=== PATIENT | female | born 1965 | race Caucasian/White ===

== ENCOUNTER 2017-08-15 16:14 | Observation (INO) | payer SELFPAY ==
[~2017-08-15] VITALS: Ht 170.2 cm; Wt 43.6 kg
[2017-08-15] VITALS (7 sets, daily range): BP systolic 145–166; BP diastolic 71–108; PULSE 88–102; RESP 12–18; TEMP 99.1; O2SAT 94–98
[~2017-08-15 16:14] MED LIST: ALBUAER3 INH; PRED5PAK PO; SYMB160A INH; VENTAER INH; ZITH250T PO
[2017-08-15] MEDS ORDERED: SODIUM CHLOR 0.9% 1000 ML INJ 1,000 ML IV SCH (16:41)
[2017-08-15] MEDS ORDERED: KETOROLAC TROMETHAMINE 30 MG/ML (IVP) VIAL IVP ONE (16:45)
[2017-08-15] MEDS ORDERED: SODIUM CHLORIDE 0.9% FLUSH 10 ML FLUSH IV FLUSH PRN ×2 (16:45→22:00)
[2017-08-15] MEDS ORDERED: METOCLOPRAMIDE HCL 10 MG/2 ML VIAL IV PUSH ONE ×2 (16:45→20:30)
--- NOTE | 2017-08-15 16:50 | PD ---
HPI Chief Complaint: Abdominal Pain Time Seen by Provider: 16:37 Travel History International Travel<30 days: No Contact w/Intl Traveler<30days: No Traveled to known affect area: No History of Present Illness HPI Patient is a 52-year-old female with history of diverticulitis and Crohn's disease, who comes in complaining of abdominal pain with nausea and vomiting. She says this all started at 6 AM this morning. She says her last bowel movement was yesterday and was normal. She has not taken anything for her symptoms. She says the last time she had a diverticulitis issue was 10 years ago. She is not currently on anything for Crohn's due to insurance issues. She denies fever chills. She says the pain is all over her abdomen, but more severe in her left side. Severity is moderate. 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) Diabetes: No Diminished Hearing: No Diverticulitis: Yes ([place]) Endocrine: No Gastrointestinal Disorders: Yes (Crohns/gastroparesis) Genitourinary: No Hypertension: Yes Immune Disorder: No Implanted Vascular Access Dvce: Yes Musculoskeletal: No Neurologic: Yes Psychiatric: No Reproductive: No Respiratory: Yes (asthma) Immunizations Current: No Sleep Apnea: No Thyroid Disease: No ?: Not Menopausal: Yes : 5 Para: 5 Miscarriage: 0 : 0 Past Surgical History Abdominal Surgery: Yes (c section and appendectomy) Appendectomy: Yes Body Medical Devices: BREAST IMPLANTS Section: Yes (X3) Cholecystectomy: Yes Coronary Artery Bypass Graft: No Other Surgery: Yes Social History Alcohol Use: No Tobacco Use: Yes (7 cigarettes/day) Substance Use: No Allergies-Medications (Allergen,Severity, Reaction): Coded Allergies: morphine (Unverified Allergy, Severe, WELRADHA, 08/15/17) Reported Meds & Prescriptions Reported Meds & Active Scripts Active Ventolin Hfa 18 GM Inh (Albuterol Sulfate) 90 Mcg/Act Aer 2 Puff INH Q4-6H PRN Reported Xanax (Alprazolam) 0.5 Mg Tab 0.5 Mg PO Q6H PRN Review of Systems Except as stated in HPI: all other systems reviewed are Neg General / Constitutional: No: Fever, Chills HENT: No: Headaches, Lightheadedness Cardiovascular: No: Chest Pain or Discomfort Respiratory: No: Shortness of Breath Gastrointestinal: Positive: Nausea, Vomiting, Abdominal Pain, No: Diarrhea Genitourinary: No: Dysuria Musculoskeletal: No: Myalgias, Edema Skin: No Rash, No Change in Pigmentation Neurologic: No: Weakness, Dizziness Physical Exam Narrative GENERAL: Awake and alert in mild distress due to pain. SKIN: Focused skin assessment warm/dry. No wounds or signs of infection. HEAD: Atraumatic. Normocephalic. EYES: Pupils equal and round. No scleral icterus. ENT: Mucous membranes pink and moist. NECK: Trachea midline. No JVD. CARDIOVASCULAR: Regular rate and rhythm. No murmur appreciated. RESPIRATORY: No accessory muscle use. Clear to auscultation. Breath sounds equal bilaterally. GASTROINTESTINAL: Abdomen soft, nondistended. Diffusely tender to palpation with voluntary guarding. MUSCULOSKELETAL: No obvious deformities. No clubbing. No cyanosis. No edema. NEUROLOGICAL: Awake and alert. No obvious cranial nerve deficits. Motor grossly within normal limits. Normal speech. PSYCHIATRIC: Appropriate mood and affect; insight and judgment normal. Data Data Last Documented VS Vital Signs Date Time Temp Pulse Resp B/P (MAP) Pulse Ox O2 Delivery O2 Flow Rate FiO2 08/15/17 20:50 92 18 166/89 (114) 96 Room Air 08/15/17 16:30 99.1 Orders Orders Urinalysis - C+S If Indicated (08/15/17 16:16) Ed Urine Pregnancytest Poc (08/15/17 16:16) Complete Blood Count With Diff (08/15/17 16:41) Comprehensive Metabolic Panel (08/15/17 16:41) Lipase (08/15/17 16:41) Prothrombin Time / Inr (Pt) (08/15/17 16:41) Act Partial Throm Time (Ptt) (08/15/17 16:41) Iv Access Insert/Monitor (08/15/17 16:41) Ecg Monitoring (08/15/17 16:41) Oximetry (08/15/17 16:41) Sodium Chlor 0.9% 1000 Ml Inj (Ns 1000 M (08/15/17 16:41) Sodium Chloride 0.9% Flush (Ns Flush) (08/15/17 16:45) Ketorolac Inj (Toradol Inj) (08/15/17 16:45) Metoclopramide Inj (Reglan Inj) (08/15/17 16:45) Promethazine Inj (Phenergan Inj) (08/15/17 18:15) Ketorolac Inj (Toradol Inj) (08/15/17 18:15) Ct Abd/Pel W/O Iv Contrast (08/15/17 ) Prochlorperazine Inj (Compazine Inj) (08/15/17 19:00) Sodium Chlor 0.9% 1000 Ml Inj (Ns 1000 M (08/15/17 20:30) Metoclopramide Inj (Reglan Inj) (08/15/17 20:30) Tramadol (Ultram) (08/15/17 21:00) Labs Laboratory Tests Test 08/15/17 17:26 White Blood Count 10.2 TH/MM3 Red Blood Count 4.72 MIL/MM3 Hemoglobin 15.4 GM/DL Hematocrit 44.3 % Mean Corpuscular Volume 93.9 FL Mean Corpuscular Hemoglobin 32.7 PG Mean Corpuscular Hemoglobin Concent 34.8 % Red Cell Distribution Width 13.7 % Platelet Count 258 TH/MM3 Mean Platelet Volume 8.2 FL CBC Comment AUTO DIFF Differential Total Cells Counted 100 Neutrophils % (Manual) 86 % Lymphocytes % 12 % Monocytes % 2 % Neutrophils # (Manual) 8.8 TH/MM3 Differential Comment FINAL DIFF MANUAL Platelet Morphology Comment NORMAL Prothrombin Time 10.3 SEC Prothromb Time International Ratio 1.0 RATIO Activated Partial Thromboplast Time 20.3 SEC Blood Urea Nitrogen 12 MG/DL Creatinine 0.70 MG/DL Random Glucose 144 MG/DL Total Protein 8.4 GM/DL Albumin 4.7 GM/DL Calcium Level 9.9 MG/DL Alkaline Phosphatase 114 U/L Aspartate Amino Transf (AST/SGOT) 15 U/L Alanine Aminotransferase (ALT/SGPT) 11 U/L Total Bilirubin 0.4 MG/DL Sodium Level 138 MEQ/L Potassium Level 3.9 MEQ/L Chloride Level 100 MEQ/L Carbon Dioxide Level 29.8 MEQ/L Anion Gap 8 MEQ/L Estimat Glomerular Filtration Rate 89 ML/MIN Lipase 102 U/L [facility] Medical Decision Making Medical Screen Exam Complete: Yes Emergency Medical Condition: Yes Medical Record Reviewed: Yes Differential Diagnosis Diverticulitis versus colitis versus bowel obstruction versus pancreatitis Narrative Course Patient is a 52 year old female who comes in complaining of abdominal pain, nausea and vomiting. Exam shows diffuse tenderness to palpation. IV was unable to be obtained at first. Patient given IM Phenergan and Toradol. She continued to vomit. She was given IM Compazine. IV was obtained. Her labs show no acute abnormalities. Patient continued to vomit. Given Reglan and IVF. She says she still feels nauseous and is unable to tolerate PO. She will be placed in observation for further management. Diagnosis Primary Impression: Nausea & vomiting Qualified Codes: R11.2 - Nausea with vomiting, unspecified Additional Impression: Abdominal pain Qualified Codes: R10.84 - Generalized abdominal pain Admitting Information Admitting Physician Requests: Observation Antonina Romano MD Aug 15, 2017 16:50
[2017-08-15] MEDS ORDERED: ALPR.5 PO (17:21)
[2017-08-15 17:42] LABS: HEMATOCRIT 44.3 % (35.0-46.0); HEMOGLOBIN 15.4 GM/DL (11.6-15.3); MEAN CELL VOLUME 93.9 FL (80.0-100.0); MEAN CORPUSCULAR HEMOGLOBIN 32.7 PG (27.0-34.0); MEAN CORPUSCULAR HGB CONC 34.8 % (32.0-36.0); MEAN PLATELET VOLUME 8.2 FL (7.0-11.0); PLATELET COUNT 258 TH/MM3 (150-450); RED BLOOD COUNT 4.72 MIL/MM3 (4.00-5.30); RED CELL DISTRIBUTION WIDTH 13.7 % (11.6-17.2); WHITE BLOOD COUNT 10.2 TH/MM3 (4.0-11.0)
[2017-08-15 17:54] LABS: CHLORIDE 100 MEQ/L (98-107); SODIUM (NA) 138 MEQ/L (136-145)
[2017-08-15 17:59] LABS: ALBUMIN 4.7 GM/DL (3.4-5.0); BICARBONATE 29.8 MEQ/L (21.0-32.0); BLOOD UREA NITROGEN 12 MG/DL (7-18); CALCIUM 9.9 MG/DL (8.5-10.1); GLUCOSE,RANDOM 144 MG/DL (74-106)
[2017-08-15 18:02] LABS: ALT (GPT) 11 U/L (10-53); AST (GOT) 15 U/L (15-37); GLOMERULAR FILTRATION RATE 89 ML/MIN (>89)
[2017-08-15 18:04] LABS: TOTAL BILIRUBIN ADULT 0.4 MG/DL (0.2-1.0); TOTAL PROTEIN 8.4 GM/DL (6.4-8.2)
[2017-08-15 18:05] LABS: ALKALINE PHOSPHATASE 114 U/L (45-117)
[2017-08-15 18:06] LABS: PROTHROMBIN TIME - PATIENT 10.3 SEC (9.8-11.6)
[2017-08-15] MEDS ORDERED: KETOROLAC TROMETHAMINE 60 MG/2 ML (IM) VIAL IM ONE (18:15)
[2017-08-15] MEDS ORDERED: PROMETHAZINE INJ 25 MG/ML VIAL IM ONE (18:15)
--- NOTE | 2017-08-15 18:44 | RADRPT ---
EXAM DATE/TIME: 08/15/2017 18:19 [facility] COMPARISON: No previous studies available for comparison. INDICATIONS : Diffuse abdominal pain with nausea and vomiting. ORAL CONTRAST: No oral contrast ingested. RADIATION DOSE: 4.99 CTDIvol (mGy) MEDICAL HISTORY : Diverticulitis. Crohns disease. SURGICAL HISTORY : Appendectomy. section.Cholecystectomy. ENCOUNTER: Initial ACUITY: 1 day PAIN SCALE: 6/10 LOCATION: pelvis abdomen TECHNIQUE: Volumetric scanning of the abdomen and pelvis was performed. Using automated exposure control and ad justment of the mA and/or kV according to patient size, radiation dose was kept as low as reasonably achievable to obtain optimal diagnostic quality images. DICOM format image data is available electro nically for review and comparison. FINDINGS: LOWER LUNGS: The visualized lower lungs are clear. LIVER: Homogeneous density without lesion. There is no dilation of the biliary tree. The patient is status post cholecystectomy. SPLEEN: Normal size without lesion. PANCREAS: Within normal limits. KIDNEYS: Normal in size and shape. There is no mass, stone, or hydronephrosis. ADRENAL GLANDS: Within normal limits. VASCULAR: There is no aortic aneurysm. Atherosclerotic calcifications are present. BOWEL/MESENTERY: The stomach and proximal duodenum are distended. This is nonspecific. The remaining aspect of the bow els are unremarkable. ABDOMINAL WALL: Within normal limits. RETROPERITONEUM: There is no lymphadenopathy. BLADDER: No wall thickening or mass. REPRODUCTIVE: Within normal limits. INGUINAL: There is no lymphadenopathy or hernia. MUSCULOSKELETAL: There some degenerative change at the lower lumbar spine with possible spondylolisthesis. CONCLUSION: 1. Nonspecific mild distention of the stomach and proximal duodenum. 2. Otherwise negative CT examination performed without intravenous or oral contrast. Nic Anthony MD on August 15, 2017 at 18:37 Board Certified Radiologist. This report was verified electronically.
[2017-08-15 18:49] LABS: LYMPHOCYTES 12 % (9-44); MONOCYTES 2 % (0-8); NEUTROPHIL # MANUAL DIFF 8.8 TH/MM3 (1.8-7.7); POLYS (SEG NEUTROPHILS) 86 % (16-70)
[2017-08-15] MEDS ORDERED: PROCHLORPERAZINE INJ 10 MG/2 ML VIAL IM ONE (19:00)
[2017-08-15] MEDS ORDERED: SODIUM CHLOR 0.9% 1000 ML INJ 1,000 ML IV ONE (20:30)
[2017-08-15] MEDS ORDERED: traMADol HCL 50 MG TAB PO ONE (21:00)
[2017-08-15] MEDS ORDERED: LACTULOSE SYRUP 20 GM/30 ML CUP PO PRN (22:00)
[2017-08-15] MEDS ORDERED: NALOXONE HCL 0.4 MG/ML AMP IV PUSH PRN (22:00)
[2017-08-15] MEDS ORDERED: SENNOSIDES 8.6 MG TAB PO PRN (22:00)
[2017-08-15] MEDS ORDERED: ACETAMINOPHEN 325 MG TAB PO PRN (22:00)
[2017-08-15] MEDS ORDERED: BISACODYL 10 MG SUPP RECTAL PRN (22:00)
[2017-08-15] MEDS ORDERED: MAGNESIUM HYDROXIDE SUSP 30 ML CUP PO PRN (22:00)
[2017-08-15] MEDS: SODIUM CHLOR 0.9% 1000 ML INJ 1,000 ML IV SCH (22:04)
[2017-08-15] MEDS: ONDANSETRON HCL 4 MG/2 ML VIAL IVP PRN (22:14)
[2017-08-16] VITALS (8 sets, daily range): BP systolic 142–182; BP diastolic 86–98; PULSE 83–95; RESP 15–16; TEMP 96.6–99.6; O2SAT 92–98
[2017-08-16] MEDS: PROCHLORPERAZINE INJ 10 MG/2 ML VIAL IV PUSH PRN ×2 (00:40→06:30)
[2017-08-16 01:02] LABS: BILIRUBIN, URINE NEG (NEG); BLOOD, URINE NEG (NEG); GLUCOSE,URINE NEG (NEG); KETONE, URINE 15 mg/dL (NEG); NITRITE,URINE NEG (NEG); URINE COLOR YELLOW (YELLW/STRAW); URINE LEUKOCYTE ESTERASE NEG (NEG)
[2017-08-16 01:11] LABS: AMORPHOUS SEDIMENT, URINE LARGE; MUCUS URINE MOD /lpf (OCC); WBC, URINE 0-2 /hpf (0-5)
[2017-08-16 01:12] LABS: SQUAMOUS EPITHELIAL CELL URINE 0-5 /hpf (0-5)
[2017-08-16] MEDS: ONDANSETRON HCL 4 MG/2 ML VIAL IVP PRN ×2 (04:18→11:08)
[2017-08-16 07:31] LABS: CHLORIDE 104 MEQ/L (98-107); SODIUM (NA) 138 MEQ/L (136-145)
[2017-08-16 07:41] LABS: ALBUMIN 3.7 GM/DL (3.4-5.0); ALT (GPT) 9 U/L (10-53); AST (GOT) 16 U/L (15-37); BICARBONATE 26.2 MEQ/L (21.0-32.0); BLOOD UREA NITROGEN 12 MG/DL (7-18); CALCIUM 8.6 MG/DL (8.5-10.1); CREATININE 0.56 MG/DL (0.50-1.00); GLOMERULAR FILTRATION RATE 115 ML/MIN (>89); GLUCOSE,RANDOM 102 MG/DL (74-106); TOTAL BILIRUBIN ADULT 0.4 MG/DL (0.2-1.0); TOTAL PROTEIN 6.6 GM/DL (6.4-8.2)
[2017-08-16 07:49] LABS: ALKALINE PHOSPHATASE 89 U/L (45-117)
[2017-08-16] MEDS ORDERED: ALPRAZolam 0.5 MG TAB PO PRN (08:15)
[2017-08-16] MEDS ORDERED: SODIUM CHLORIDE 0.9% FLUSH 10 ML FLUSH IV FLUSH SCH (09:00)
[2017-08-16] MEDS ORDERED: DOCUSATE SODIUM 50 MG/SENNA 8.6 MG TAB PO SCH (09:00)
[2017-08-16] MEDS: SODIUM CHLOR 0.9% 1000 ML INJ 1,000 ML IV SCH (13:13)
[2017-08-16] MEDS ORDERED: PROM25TA10 PO (15:14)
--- NOTE | 2017-08-16 15:22 | HHI.DS ---
Discharge Summary Admission Date Aug 15, 2017 at 21:52 Discharge Date: Aug 16, 2017 Admitting Diagnosis intractable nausea and vomiting (1) Nausea & vomiting ICD Code: R11.2 - Nausea with vomiting, unspecified Diagnosis: Principal Status: Acute (2) Abdominal pain ICD Code: R10.9 - Abdominal pain Diagnosis: Principal Status: Acute Procedures None Brief History - From Admission Admit secondary to Nausea/Vomiting. Viral vs. Food Bourne Gastroenteritis. CBC/BMP: 08/15/17 1726 08/16/17 0632 Significant Findings Laboratory Tests Test 08/15/17 17:26 08/16/17 00:53 08/16/17 06:32 Hemoglobin 15.4 GM/DL (11.6-15.3) Neutrophils % (Manual) 86 % (16-70) Neutrophils # (Manual) 8.8 TH/MM3 (1.8-7.7) Activated Partial Thromboplast Time 20.3 SEC (24.3-30.1) Random Glucose 144 MG/DL (74-106) Total Protein 8.4 GM/DL (6.4-8.2) Urine Ketones 15 mg/dL (NEG) Urine Mucus MOD /lpf (OCC) Alanine Aminotransferase (ALT/SGPT) 9 U/L (10-53) Hospital Course Mrs. Delgado is a 52 year old female. She was admitted with hyperemesis. She had been unable to take anything by mouth and was becoming dehydrated. Overnight she is improving. She requests discharge today and has been able to tolerate PO intake today. Medically stable for discharge to home today with PO phenergan PRN. Pt Condition on Discharge: Stable Discharge Disposition: Discharge Home Discharge Time: <= 30 minutes Discharge Instructions DIET: Follow Instructions for: As Tolerated, No Restrictions Activities you can perform: Regular-No Restrictions Follow up Referrals: PCP Follow-up - 2 Weeks New Medications: Promethazine (Phenergan) 25 Mg Tablet 25 MG PO Q6H PRN for NAUSEA OR VOMITING, #10 TAB 1 Refill Continued Medications: Albuterol 18 GM Inh (Ventolin Hfa 18 GM Inh) 90 Mcg/Act Aer 2 PUFF INH Q4-6H PRN for SHORTNESS OF BREATH, #1 INHALER 0 Refills Alprazolam (Xanax) 0.5 Mg Tab 0.5 MG PO Q6H PRN for ANXIETY, TAB 0 Refills Abdifatah Redd MD Aug 16, 2017 15:22
--- NOTE | 2017-08-17 09:05 | HHI.HP ---
[facility] Primary Care Physician No Primary Care Physician Admission Diagnosis intractable nausea and vomiting Diagnoses: (1) Nausea & vomiting Diagnosis: Principal (2) Abdominal pain Diagnosis: Principal Travel History International Travel<30 Days: No Contact w/Intl Traveler <30 Da: No Traveled to Known Affected Are: No History of Present Illness Mrs. Clarke is a 52-year-old female. She has Crohn's disease at baseline. Admit secondary to Nausea/Vomiting. Viral vs. Food Bourne Gastroenteritis. No suspicion for Crohn's exacerbation. Review of Systems Gastrointestinal: COMPLAINS OF: Abdominal pain, Nausea, Vomiting, DENIES: Diarrhea Past Family Social History Past Medical History Crohn's disease Past Surgical History None Reported Medications Reported Meds & Active Scripts Active Phenergan (Promethazine HCl) 25 Mg Tablet 25 Mg PO Q6H PRN Ventolin Hfa 18 GM Inh (Albuterol Sulfate) 90 Mcg/Act Aer 2 Puff INH Q4-6H PRN Reported Xanax (Alprazolam) 0.5 Mg Tab 0.5 Mg PO Q6H PRN Allergies: Coded Allergies: morphine (Unverified Allergy, Severe, WELTS, 08/15/17) Family History No Social History None reported Physical Exam Vital Signs Vital Signs Date Time Temp Pulse Resp B/P (MAP) Pulse Ox O2 Delivery O2 Flow Rate FiO2 08/16/17 12:00 99.0 90 15 142/86 (104) 92 08/16/17 11:58 99.3 90 15 142/86 (104) 92 08/16/17 09:52 96.6 83 15 159/98 (118) Physical Exam GENERAL: NAD, A&Ox3 HEAD: Normocephalic. NECK: Supple, trachea midline. No lymphadenopathy. EYES: No scleral icterus. No injection or drainage. CARDIOVASCULAR: Regular rate and rhythm without murmurs, gallops, or rubs. RESPIRATORY: Breath sounds equal bilaterally. No accessory muscle use. GASTROINTESTINAL: Abdomen soft, non-tender, nondistended. MUSCULOSKELETAL: No cyanosis, or edema. SKIN: Warm and dry. NEURO: No focal neurological deficitis. Result Diagram: 3/27/18 1726 08/16/17 0632 Caprini VTE Risk Assessment Caprini VTE Risk Assessment: No/Low Risk (score <= 1) Caprini Risk Assessment Model Point Value = 1 Point Value = 2 Point Value = 3 Point Value = 5 Age 41-60 Minor surgery BMI > 25 kg/m2 Swollen legs Varicose veins or History of unexplained or recurrent spontaneous Oral contraceptives or hormone replacement Sepsis (< 1 month) Serious lung disease, including pneumonia (< 1 month) Abnormal pulmonary function Acute myocardial infarction Congestive heart failure (< 1 month) History of inflammatory bowel disease Medical patient at bed rest Age 61-74 Arthroscopic surgery Major open surgery (> 45 min) Laparoscopic surgery (> 45 min) Malignancy Confined to bed (> 72 hours) Immobilizing plaster cast Central venous access Age >= 75 History of VTE Family history of VTE Factor V Leiden Prothrombin [id number] Lupus anticoagulant Anticardiolipin antibodies Elevated serum homocysteine Heparin-induced thrombocytopenia Other congenital or acquired thrombophilia Stroke (< 1 month) Elective arthroplasty Hip, pelvis, or leg fracture Acute spinal cord injury (< 1 month) Prophylaxis Regimen Total Risk Factor Score Risk Level Prophylaxis Regimen 0-1 Low Early ambulation 2 Moderate Order ONE of the following: *Sequential Compression Device (SCD) *Heparin 5000 units SQ BID 3-4 Higher Order ONE of the following medications: *Heparin 5000 units SQ TID *Enoxaparin/Lovenox 40 mg SQ daily (WT < 150 kg, CrCl > 30 mL/min) *Enoxaparin/Lovenox 30 mg SQ daily (WT < 150 kg, CrCl > 10-29 mL/min) *Enoxaparin/Lovenox 30 mg SQ BID (WT < 150 kg, CrCl > 30 mL/min) AND/OR *Sequential Compression Device (SCD) 5 or more Highest Order ONE of the following medications: *Heparin 5000 units SQ TID (Preferred with Epidurals) *Enoxaparin/Lovenox 40 mg SQ daily (WT < 150 kg, CrCl > 30 mL/min) *Enoxaparin/Lovenox 30 mg SQ daily (WT < 150 kg, CrCl > 10-29 mL/min) *Enoxaparin/Lovenox 30 mg SQ BID (WT < 150 kg, CrCl > 30 mL/min) AND *Sequential Compression Device (SCD) Assessment and Plan Problem List: (1) Nausea & vomiting ICD Code: R11.2 - Nausea with vomiting, unspecified Status: Acute (2) Abdominal pain ICD Code: R10.9 - Abdominal pain Status: Acute Assessment and Plan 52 old female admitted secondary to gastroenteritis Gastroenteritis This is resolved by the time I see this patient IV hydration was provided overnight Patient discharge See discharge summary Problem Qualifiers (1) Nausea & vomiting: Qualified Codes: R11.2 - Nausea with vomiting, unspecified (2) Abdominal pain: Qualified Codes: R10.84 - Generalized abdominal pain Abidfatah Redd MD Aug 17, 2017 09:05
== END 2017-08-16 16:24 | disposition home or self-care (01) ==
LOC: PHED 16:14 → PHEDA 21:52 → PHEDH 08-16 01:52 → PH3B 08-16 07:39
PROVIDERS: ADMIT Hospitalist; ATTEND Hospitalist
DX: K52.9 Noninfective gastroenteritis and colitis, unspecified (principal); K50.90 Crohn's disease, unspecified, without complications; I10 Essential (primary) hypertension; J44.9 Chronic obstructive pulmonary disease, unspecified; F17.210 Nicotine dependence, cigarettes, uncomplicated; Z86.73 Personal history of transient ischemic attack (TIA), and cerebral infarction without residual deficits
CPT/HCPCS: 74176; 80053; 81001; 83690; 84703; 85007; 85027; 85610; 85730; 96361; 96372; 96374; 96375; 96376; 99285; G0378; J0780; J1885; J2405; J2550; J2765; J7030